=== PATIENT | male | born 1950 | race American Indian/Alaskan Native ===

== ENCOUNTER 2021-03-25 13:52 | Emergency (ER) | payer MEDICAID, MEDICARE ==
--- NOTE | 2021-03-25 14:44 | XRay Report ---
CHEST PA AND LATERAL VIEWS INDICATION: cough. COMPARISON: 05/28/2011 FINDINGS: Support devices: None. Heart: Within normal limits. Lungs/Pleura: Extensive but patchy airspace disease is seen within the right mid to lower lung and, t o a lesser degree in the left lower lung. No pleural abnormality. IMPRESSION: 1. Bilateral pneumonia right greater than left. Signer Name: Jamin Hamilton MD Signed: 03/25/2021 2:40 PM Workstation Name: [id number]
[2021-03-25 15:26] LABS: Hematocrit 44.4 % (35.5-45.6); Hemoglobin 14.3 gm/dl (11.8-15.2); Mean Corpuscular HGB Conc 32 % (32-34); Mean Corpuscular Volume 95 fl (84-94); Platelet Count 210 K/mm3 (140-440); Red Blood Count 4.68 M/mm3 (3.65-5.03); Red Cell Distribution Width 14.1 % (13.2-15.2)
--- NOTE | 2021-03-25 15:30 | Emergency Department Report ---
HPI - General Chief Complaint: Upper Respiratory Infection Time Seen by Provider: 03/25/21 14:03 - HPI HPI: 70-year-old -[place] male presents to the emergency department with complaint of a 1 week history of chills, subjective fever and a mixed dry and productive cough. He denies any chest pain, shortness of breath, nausea vomiting, back pain, diaphoresis. He has a past medical history of hypertension and diabetes. He has not taken anything for symptoms prior to presentation. He denies any tobacco or illicit drug use. No recent travel or sick contacts at home. He is vaccinated against COVID-19. He also had a recent negative COVID-1 9 test. ED Past Medical Hx - Past Medical History Hx Hypertension: Yes Hx Diabetes: Yes Additional medical history: GOUT - Surgical History Past Surgical History?: No - Medications Home Medications: Home Medications Medication Instructions Recorded Confirmed Last Taken Type Amoxicillin/Potassium Clav 1 each PO BID #14 tablet 03/25/21 Unknown Rx [Augmentin 875-125 Tablet] Azithromycin [Zithromax Z-THANH] 250 mg PO DAILY #6 tab 03/25/21 Unknown Rx Benzonatate [Tessalon Perles] 100 mg PO Q8HR PRN #20 capsule 03/25/21 Unknown Rx ED Review of Systems ROS: Stated complaint: COUGH Other details as noted in HPI Comment: All other systems reviewed and negative Constitutional: chills, fever Eyes: denies: eye pain, vision change ENT: denies: ear pain, throat pain Respiratory: cough. denies: shortness of breath Cardiovascular: denies: chest pain, palpitations Gastrointestinal: denies: abdominal pain, vomiting Genitourinary: denies: dysuria, discharge Musculoskeletal: denies: back pain, arthralgia Skin: denies: rash, lesions Neurological: denies: headache, weakness Physical Exam - Physical Exam Physical Exam: GENERAL: The patient is well-developed well-nourished. HENT: Normocephalic. Atraumatic. Patient has moist mucous membranes. EYES: Extraocular motions are intact. NECK: Supple. Trachea is midline. CHEST/LUNGS: Rhonchi heard bilaterally. No tachypnea accessory muscle use. Auscultation. There is no respiratory distress noted. HEART/CARDIOVASCULAR: Regular. There is no tachycardia. There is no murmur. ABDOMEN: Abdomen is soft, nontender. Patient has normal bowel sounds. There is no abdominal distention. SKIN: Skin is warm and dry. NEURO: The patient is awake, alert, and oriented. The patient is cooperative. The patient has no focal neurologic deficits. Normal speech. MUSCULOSKELETAL: There is no tenderness or deformity. There is no limitation range of motion. ED Medical Decision Making - Lab Data Result diagrams: 03/25/21 14:52 03/25/21 14:52 Lab Results 03/25/21 03/25/21 Range/Units 14:52 14:52 WBC 3.9 L (4.5-11.0) K/mm3 RBC 4.68 (3.65-5.03) M/mm3 Hgb 14.3 (11.8-15.2) gm/dl Hct 44.4 (35.5-45.6) % MCV 95 H (84-94) fl MCH 31 (28-32) pg MCHC 32 (32-34) % RDW 14.1 (13.2-15.2) % Plt Count 210 (140-440) K/mm3 Baso % (Auto) Inspector Salvage Add Manual Diff Complete Total Counted 100 Seg Neuts % (Manual) 77.0 H (40.0-70.0) % Lymphocytes % (Manual) 13.0 L (13.4-35.0) % Monocytes % (Manual) 9.0 H (0.0-7.3) % Eosinophils % (Manual) 1.0 (0.0-4.3) % Nucleated RBC % Not Reportable Seg Neutrophils # Man 3.0 (1.8-7.7) K/mm3 Band Neutrophils # 0.0 K/mm3 Lymphocytes # (Manual) 0.5 L (1.2-5.4) K/mm3 Abs React Lymphs (Man) 0.0 K/mm3 Monocytes # (Manual) 0.4 (0.0-0.8) K/mm3 Eosinophils # (Manual) 0.0 (0.0-0.4) K/mm3 Basophils # (Manual) 0.0 (0.0-0.1) K/mm3 Metamyelocytes # 0.0 K/mm3 Myelocytes # 0.0 K/mm3 Promyelocytes # 0.0 K/mm3 Blast Cells # 0.0 K/mm3 WBC Morphology Not Reportable Hypersegmented Neuts Not Reportable Hyposegmented Neuts Not Reportable Hypogranular Neuts Not Reportable Smudge Cells Not Reportable Toxic Granulation Not Reportable Toxic Vacuolation Not Reportable Dohle Bodies Not Reportable Pelger-Huet Anomaly Not Reportable Korey Rods Not Reportable Platelet Estimate Consistent w auto Clumped Platelets Not Reportable Plt Clumps, EDTA Not Reportable Large Platelets Not Reportable Giant Platelets Not Reportable Platelet Satelliting Not Reportable Plt Morphology Comment Not Reportable RBC Morphology Normal Dimorphic RBCs Not Reportable Polychromasia Not Reportable Hypochromasia Not Reportable Poikilocytosis Not Reportable Anisocytosis Not Reportable Microcytosis Not Reportable Macrocytosis Not Reportable Spherocytes Not Reportable Pappenheimer Bodies Not Reportable Sickle Cells Not Reportable Target Cells Not Reportable Tear Drop Cells Not Reportable Ovalocytes Not Reportable Helmet Cells Not Reportable Willson-Belcourt Bodies Not Reportable Turin Rings Not Reportable Jake Cells Not Reportable Bite Cells Not Reportable Crenated Cell Not Reportable Elliptocytes Not Reportable Acanthocytes (Spur) Not Reportable Rouleaux Not Reportable Hemoglobin C Crystals Not Reportable Schistocytes Not Reportable Malaria parasites Not Reportable Giuliano Bodies Not Reportable Hem Pathologist Commnt No Sodium 133 L (137-145) mmol/L Potassium 4.8 (3.6-5.0) mmol/L Chloride 95.4 L (98-107) mmol/L Carbon Dioxide 20 L (22-30) mmol/L Anion Gap 22 mmol/L BUN 20 (9-20) mg/dL Creatinine 1.3 (0.8-1.3) mg/dL Estimated GFR > 60 ml/min BUN/Creatinine Ratio 15 % Glucose 105 H (75-100) mg/dL Calcium 9.1 (8.4-10.2) mg/dL - Radiology Data Radiology results: report reviewed CHEST PA AND LATERAL VIEWS INDICATION: cough. COMPARISON: 05/28/2011 FINDINGS: Support devices: None. Heart: Within normal limits. Lungs/Pleura: Extensive but patchy airspace disease is seen within the right mid to lower lung and, to a lesser degree in the left lower lung. No pleural abnormality. IMPRESSION: 1. Bilateral pneumonia right greater than left. - Medical Decision Making This patient presents with a 1 week history of chills, subjective fever and a cough. There was a delay in getting the patient's full set of vital signs and once they were obtained the patient was found to have a fever with a temperature of about 102 F. He was given both Tylenol and ibuprofen. The patient's labs were unremarkable including CBC and metabolic panel. Chest x-ray showed bilateral pneumonia with right greater than left. The rest of the patient's vital signs were unremarkable including no hypoxia. We did an ambulatory pulse ox without any oxygen desaturation or increased work of breathing. The patient will be placed on antibiotics. He is vaccinated against COVID-19 and had a nega tive recent COVID-19 test. I instructed the patient to get another COVID-19 test that has a PCR test. He has been instructed to follow-up with his primary care physician. He will use Tylenol and ibuprofen, using dosing on the back of the bottle, as needed for fever or discomfort. The patient will return to the emergency department with any high intractable fever, development of shortness of breath, or with any acute distress. He understands and agrees to the plans. Critical Care Time: No Critical care attestation.: If time is entered above; I have spent that time in minutes in the direct care of this critically ill patient, excluding procedure time. ED Disposition Clinical Impression: Bilateral pneumonia Qualifiers: Pneumonia type: due to unspecified organism Lung location: unspecified part of lung Qualified Code(s): J18.9 - Pneumonia, unspecified organism Fever Qualifiers: Fever type: unspecified Qualified Code(s): R50.9 - Fever, unspecified Disposition: 01 HOME / SELF CARE / HOMELESS Is pt being admited?: No Condition: Stable Instructions: Fever, Adult, Community-Acquired Pneumonia, Adult, Bacterial Pneumonia (ED) Additional Instructions: Please follow-up with your primary care physician in the next few days. Unfortunately I am able to test you for COVID-19 at this time. I do recommend seeking outpatient COVID-19 testing again. Take all medications as prescribed. You can take Tylenol every 4-6 hours and ibuprofen every 6-8 hours, using dosing on the back of the bottle, as needed for any fever or discomfort. Return to the emergency department with any worsening of your symptoms, new or concerning symptoms not addressed during this current emergency department visit, or with any acute distress. Prescriptions: Amoxicillin/Potassium Clav [Augmentin 875-125 Tablet] 1 each PO BID #14 tablet Benzonatate [Tessalon Perles] 100 mg PO Q8HR PRN #20 capsule PRN Reason: Cough Azithromycin [Zithromax Z-THANH] 250 mg PO DAILY #6 tab Referrals: PRIMARY CARE, [Primary Care Provider] - 2-3 Days Time of Disposition: 16:31
[2021-03-25 15:42] LABS: BUN/Creatinine Ratio 15; Blood Urea Nitrogen 20 mg/dL (9-20); Calcium 9.1 mg/dL (8.4-10.2); Hemolysis Index 34
[2021-03-25 15:51] VITALS: BP 128/75
[2021-03-25] MEDS ORDERED: ACETAMINOPHEN 325 MG TAB PO ONE (16:00)
[2021-03-25] MEDS ORDERED: IBUPROFEN 600 MG TAB PO ONE (16:01)
[2021-03-25 17:22] LABS: Platelet Estimate Consistent w Auto; RBC Morphology Normal; Total Cells Counted 100
== END 2021-03-25 17:14 | disposition home or self-care (01) ==
LOC: ED 13:52
DX: J18.9 Pneumonia, unspecified organism (principal); I10 Essential (primary) hypertension; E11.9 Type 2 diabetes mellitus without complications
CPT/HCPCS: 36415; 71046; 80048; 85007; 85025; 99283